=== PATIENT | female | born 1935 | race Caucasian/White ===

== ENCOUNTER 2024-11-12 11:29 | Emergency (ER) | payer OTHER, MEDICAID ==
[~2024-11-12] VITALS: Ht 154.9 cm; Wt 50.0 kg
[2024-11-12 11:33] VITALS: O2SAT 85
[2024-11-12] MEDS: LACTATED RINGERS 1,000 ML IV SCH (11:40)
[2024-11-12] MEDS ORDERED: NOREPINEPHRINE 8MG/250ML PMX 250 ML IV ONE ×2 (11:43→11:45)
[2024-11-12] MEDS ORDERED: PIPERACILLIN/TAZO 3.375G/50ML 50 ML IV STA (11:45)
[2024-11-12] MEDS: NOREPINEPHRINE 8MG/250ML PMX 250ML IV PRN (11:46)
[2024-11-12 12:10] LABS: HEMATOCRIT. 29.3 % (36.0-48.0); HEMOGLOBIN. 9.4 g/dL (12.0-16.0); MEAN PLATELET VOLUME 8.2 fl (7.4-10.4); PLATELET 224 x1000/uL (130-400); RED BLOOD CELL COUNT 3.60 mill/uL (4.2-5.4); RED CELL DISTRIBUTION WIDTH 15.8 % (11.6-14.6)
[2024-11-12] MEDS: ONDANSETRON HCL 4MG/2ML INJ IV ONE (12:15)
[2024-11-12] MEDS ORDERED: VASOPRESSIN 20 UNIT in SODIUM CHLORIDE 0.9% 99 ML IV STA (12:18)
[2024-11-12 12:25] LABS: CREATININE 3.6 mg/dL (0.6-1.0)
[2024-11-12 12:26] LABS: UREA NITROGEN BLOOD 45 mg/dL (9-23)
[2024-11-12 12:27] LABS: ASPARTATE AMINOTRANSFERASE 230 IU/L (<34)
[2024-11-12 12:28] LABS: BILIRUBIN TOTAL 0.5 mg/dL (0.1-1.0); PROTEIN TOTAL 6.8 g/dL (6.0-8.3)
[2024-11-12 12:30] LABS: BAND% 35.0 % (1.0-6.0); LYMPHOCYTES % MANUAL 1.0 % (20.0-60.0); METAMYELOCYTES % 2.0 % (0-0); MONOCYTES % MANUAL 3.0 % (2.0-8.0); NEUTROPHILS % MANUAL 59.0 % (45.0-75.0)
[2024-11-12] MEDS ORDERED: VASOPRESSIN 20 UNIT in SODIUM CHLORIDE 0.9% 99 ML IV ONE (12:30)
[2024-11-12 12:32] LABS: PLATELET ESTIMATE NORMAL
[2024-11-12] MEDS: DEXTROSE 50% WATER 50ML SYRINGE IV ONE (12:50)
[2024-11-12 12:58] VITALS: BP 102/79; PULSE 110; RESP 20; TEMP 36.8; O2SAT 95
[2024-11-12 13:06] LABS: TROPONIN I HIGH SENSITIVITY 297 ng/L (3.0-34)
== END 2024-11-12 13:02 | disposition short-term general hospital (02) ==
LOC: ER 11:29 → CANBEDREQ 13:08
DX: S09.90XA Unspecified injury of head, initial encounter (principal); I95.9 Hypotension, unspecified; N17.9 Acute kidney failure, unspecified; D72.829 Elevated white blood cell count, unspecified; E16.2 Hypoglycemia, unspecified; I50.9 Heart failure, unspecified; I11.0 Hypertensive heart disease with heart failure; W19.XXXA Unspecified fall, initial encounter; Y93.89 Activity, other specified; Y92.89 Other specified places as the place of occurrence of the external cause; Y99.8 Other external cause status
CPT/HCPCS: 99285; 93880; 96365; 96375; 80053; 83690; 85025; 86850; 86900; 86901; 86920; 87040; 87186; 84484; 87077; 36415; 76604; J3490 ×2; J2405; J2543; J7050; A4606; P9016